=== PATIENT | female | born 1930 | race Caucasian/White ===

== ENCOUNTER 2022-09-28 06:21 | Day surgery (SDC) | payer MEDICARE, OTHER ==
[~2022-09-28 06:21] MED LIST: Lactated Ringers 1,000 ML IV SCH; Lidocaine 1%/Sod Bicarbonate in NS 8.4% 1 ML Syringe IDERM PRN; Sodium Chloride 0.9% 10 ML Syringe FLUSH PRN; Sodium Chloride 0.9% 10 ML Syringe FLUSH SCH
[2022-09-28] MEDS ORDERED: Propofol 200 MG/20 ML SDV ONE (06:32)
[2022-09-28] MEDS ORDERED: Ondansetron 4 MG/2 ML SDV ONE (06:32)
[2022-09-28] MEDS ORDERED: ceFAZolin 2 GM Vial ONE (06:32)
[2022-09-28] MEDS ORDERED: fentaNYL 100 MCG/2 ML SDV ONE (06:32)
[2022-09-28] MEDS ORDERED: Bupivacaine 0.25% 10 ML SDV ONE (06:34)
[2022-09-28] MEDS ORDERED: Lidocaine 1% 10 ML MDV ONE (06:52)
[2022-09-28] MEDS ORDERED: fentaNYL 100 MCG/2 ML SDV IVPUSH PRN (07:27)
[2022-09-28] MEDS ORDERED: Ondansetron 4 MG/2 ML SDV IVPUSH PRN (07:27)
== END 2022-09-28 08:25 | disposition home or self-care (01) ==
LOC: JD.SDS 06:21
PROVIDERS: ATTEND Orthopaedic Surgery
DX: B07.9 Viral wart, unspecified (principal); E03.9 Hypothyroidism, unspecified; E55.9 Vitamin D deficiency, unspecified; E78.5 Hyperlipidemia, unspecified; F41.9 Anxiety disorder, unspecified; F32.A Depression, unspecified; G47.00 Insomnia, unspecified; R73.9 Hyperglycemia, unspecified; K21.9 Gastro-esophageal reflux disease without esophagitis; Z88.5 Allergy status to narcotic agent; Z98.890 Other specified postprocedural states; Z90.49 Acquired absence of other specified parts of digestive tract; Z79.899 Other long term (current) drug therapy; Z88.8 Allergy status to other drugs, medicaments and biological substances; Z88.6 Allergy status to analgesic agent
CPT/HCPCS: 11421; J0690; J2405; J2704; J3010; J3490; J7120; 00400; 88305; 99100